=== PATIENT | male | born 1990 | race Caucasian/White ===

== ENCOUNTER 2017-06-02 10:35 | Inpatient (IN) | payer OTHER ==
[2017-06-02] MEDS ORDERED: LORazepam TAB(*) 1 MG PO ONE (10:56)
[2017-06-02 11:30] LABS: Hematocrit 43 % (42-52); Hemoglobin 15.1 g/dl (14.0-18.0); Mean Corpuscular HGB Conc 35 g/dl (31-36); Mean Corpuscular Hemoglobin 30 pg (27-31); Mean Corpuscular Volume 84 fL (80-94); Mean Platelet Volume 9 um3 (7.4-10.4); Red Blood Count 5.07 10^6/ul (4.0-5.4); Red Cell Distribution Width 13 % (10.5-15); White Blood Count 5.9 10^3/ul (3.5-10.8)
[2017-06-02] MEDS ORDERED: Ibuprofen TAB* 600 MG PO ONE (11:35)
[2017-06-02 11:52] LABS: ALT 30 U/L (7-52); AST 23 U/L (13-39); Albumin 4.7 g/dL (3.2-5.2); Alkaline Phosphatase 17 U/L (34-104); Anion Gap 6 mmol/L (2-11); Blood Urea Nitrogen 14 mg/dL (6-24); CO2 Carbon Dioxide 27 mmol/L (22-32); Calcium 9.7 mg/dL (8.6-10.3); Chloride 103 mmol/L (101-111); EGFR African American 172.7 (>60); EGFR Non-African American 134.3 (>60); Globulin 2.8 g/dL (2-4); Glucose 115 mg/dL (70-100); Potassium 3.8 mmol/L (3.5-5.0); Sodium 136 mmol/L (133-145); Total Protein 7.5 g/dL (6.4-8.9)
[2017-06-02 12:25] LABS: Acetaminophen < 15 mcg/mL; Alcohol < 10 mg/dL (<10); Salicylate < 2.50 mg/dL (<30)
[2017-06-02 12:45] LABS: TSH (Thyroid Stimulating Horm) 1.13 mcIU/mL (0.34-5.60)
[2017-06-02 13:03] LABS: Urine Bacteria 1+ (Absent); Urine Bilirubin Negative (Negative); Urine Glucose Negative (Negative); Urine Nitrite Negative (Negative)
[2017-06-02 13:36] LABS: Benzodiazepine Urine Screen None Detected (None Detect)
--- NOTE | 2017-06-02 14:19 | ED ---
Mele Cuenca Angela, scribed for Tucker Mcghee MD on 06/02/17 at 1049 . Psychiatric Complaint - HPI Summary HPI Summary: This pt is a 27 y/o male [facility] [place]/o anxiety and hallucinations. Pt has a PMHx of bipolar disorder. Pt states that he usually takes Depakote but has not taken it in a long time. He is requesting help and states he needs to calm down as he feels anxious now. Per triage note, pt has not slept in 3 days and pt's girlfriend called the pt's parents to notify them of pt. Pt additionally c/o left ear pain. Pt's psychiatrist is Dr. Mazin Bains in [place], [place]. Phone number: [phone] [address] Shaan Guevara in [place], [place]. Phone number: - History Of Current Complaint Chief Complaint: EDMentalHealth Time Seen by Provider: 06/02/17 10:45 Hx Obtained From: Patient Onset/Duration: Lasting Days Timing: Days Character: Anxious Aggravating Factor(s): Medication Non-compliance - Depakote, Other - no sleep for the past 3 days Associated Signs And Symptoms: Positive: Hallucinating - Allergies/Home Medications Allergies/Adverse Reactions: Allergies Allergy/AdvReac Type Severity Reaction Status Date / Time Ziprasidone [From Jatindon] Allergy Unknown Unknown Verified 02/07/15 01:39 Reaction Details Home Medications: Home Medications NK [No Home Medications Reported] 06/02/17 [History Confirmed 06/02/17] PMH/Surg Hx/FS Hx/Imm Hx Endocrine/Hematology History: Denies: Hx Diabetes Cardiovascular History: Denies: Hx Hypertension Psychiatric History: Reports: Hx Bipolar Disorder - Family History Known Family History: Positive: Hypertension - mother, Other - Father: Sarcoidosis. Paternal grandfather: HTN, CAD, CVA - Social History Alcohol Use: Weekly Alcohol Amount: 5/weekend Substance Use Type: Reports: None Smoking Status (MU): Never Smoked Tobacco Review of Systems Negative: Fever, Chills Eyes: Negative Positive: Ear Ache - left ear Cardiovascular: Negative Respiratory: Negative Genitourinary: Negative Neurological: Negative Positive: Anxious, Other - hallucinations All Other Systems Reviewed And Are Negative: Yes Physical Exam - Summary Physical Exam Summary: General: well-appearing, no pain distress Skin: warm, color reflects adequate perfusion, dry Head: normal Eyes: EOMI, LIZY ENT: Right TM is normal. Left ear drum has erythema in superior portion. There is clear fluid behind the left ear drum. Both ear canals are clear. Posterior pharynx is normal. Neck: supple, nontender Respiratory: CTA, breath sounds present Cardiovascular: RRR Abdomen: soft, nontender Bowel: present Musculoskeletal: normal, strength/ROM intact Neurological: normal, sensory/motor intact, A&O x3 Psychological: anxious Triage Information Reviewed: Yes Vital Signs On Initial Exam: Initial Vitals Resp 16 06/02/17 11:07 Vital Signs Reviewed: Yes Diagnostics - Vital Signs Vital Signs Temp Pulse Resp BP Pulse Ox 06/02/17 14:12 98.6 F 76 16 134/75 99 06/02/17 11:07 16 - Laboratory Lab Results: Lab Results 06/02/17 06/02/17 06/02/17 Range/Units 11:20 11:20 12:03 WBC 5.9 (3.5-10.8) 10^3/ul RBC 5.07 (4.0-5.4) 10^6/ul Hgb 15.1 (14.0-18.0) g/dl Hct 43 (42-52) % MCV 84 (80-94) fL MCH 30 (27-31) pg MCHC 35 (31-36) g/dl RDW 13 (10.5-15) % Plt Count 183 (150-450) 10^3/ul MPV 9 (7.4-10.4) um3 Neut % (Auto) 76.1 (38-83) % Lymph % (Auto) 12.3 L (25-47) % Carolina % (Auto) 10.5 H (1-9) % Eos % (Auto) 0.7 (0-6) % Baso % (Auto) 0.4 (0-2) % Absolute Neuts (auto) 4.5 (1.5-7.7) 10^3/ul Absolute Lymphs (auto) 0.7 L (1.0-4.8) 10^3/ul Absolute Monos (auto) 0.6 (0-0.8) 10^3/ul Absolute Eos (auto) 0 (0-0.6) 10^3/ul Absolute Basos (auto) 0 (0-0.2) 10^3/ul Absolute Nucleated RBC 0 10^3/ul Nucleated RBC % 0.1 Sodium 136 (133-145) mmol/L Potassium 3.8 (3.5-5.0) mmol/L Chloride 103 (101-111) mmol/L Carbon Dioxide 27 (22-32) mmol/L Anion Gap 6 (2-11) mmol/L BUN 14 (6-24) mg/dL Creatinine 0.70 (0.67-1.17) mg/dL Est GFR ( Amer) 172.7 (>60) Est GFR (Non-Af Amer) 134.3 (>60) BUN/Creatinine Ratio 20.0 (8-20) Glucose 115 H (70-100) mg/dL Calcium 9.7 (8.6-10.3) mg/dL Total Bilirubin 0.80 (0.2-1.0) mg/dL AST 23 (13-39) U/L ALT 30 (7-52) U/L Alkaline Phosphatase 17 L (34-104) U/L Total Protein 7.5 (6.4-8.9) g/dL Albumin 4.7 (3.2-5.2) g/dL Globulin 2.8 (2-4) g/dL Albumin/Globulin Ratio 1.7 (1-3) TSH 1.13 (0.34-5.60) mcIU/mL Urine Color Urine Appearance Urine pH (5-9) Ur Specific [place] (1.010-1.030) Urine Protein (Negative) Urine Ketones (Negative) Urine Blood (Negative) Urine Nitrate (Negative) Urine Bilirubin (Negative) Urine Urobilinogen (Negative) Ur Leukocyte Esterase (Negative) Urine WBC (Auto) (Absent) Urine RBC (Auto) (Absent) Ur Squamous Epith Cells (Absent) Urine Bacteria (Absent) Urine Glucose (Negative) Salicylates < 2.50 (<30) mg/dL Urine Opiates Screen None detected (None Detect) Acetaminophen < 15 mcg/mL Ur Barbiturates Screen None detected (None Detect) Valproic Acid 30.0 L (50-100) mcg/mL Ur Phencyclidine Scrn None detected (None Detect) Ur Amphetamines Screen None detected (None Detect) U Benzodiazepines Scrn None detected (None Detect) Urine Cocaine Screen None detected (None Detect) U Cannabinoids Screen None detected (None Detect) Serum Alcohol < 10 (<10) mg/dL 06/02/17 Range/Units 12:03 WBC (3.5-10.8) 10^3/ul RBC (4.0-5.4) 10^6/ul Hgb (14.0-18.0) g/dl Hct (42-52) % MCV (80-94) fL MCH (27-31) pg MCHC (31-36) g/dl RDW (10.5-15) % Plt Count (150-450) 10^3/ul MPV (7.4-10.4) um3 Neut % (Auto) (38-83) % Lymph % (Auto) (25-47) % Carolina % (Auto) (1-9) % Eos % (Auto) (0-6) % Baso % (Auto) (0-2) % Absolute Neuts (auto) (1.5-7.7) 10^3/ul Absolute Lymphs (auto) (1.0-4.8) 10^3/ul Absolute Monos (auto) (0-0.8) 10^3/ul Absolute Eos (auto) (0-0.6) 10^3/ul Absolute Basos (auto) (0-0.2) 10^3/ul Absolute Nucleated RBC 10^3/ul Nucleated RBC % Sodium (133-145) mmol/L Potassium (3.5-5.0) mmol/L Chloride (101-111) mmol/L Carbon Dioxide (22-32) mmol/L Anion Gap (2-11) mmol/L BUN (6-24) mg/dL Creatinine (0.67-1.17) mg/dL Est GFR ( Amer) (>60) Est GFR (Non-Af Amer) (>60) BUN/Creatinine Ratio (8-20) Glucose (70-100) mg/dL Calcium (8.6-10.3) mg/dL Total Bilirubin (0.2-1.0) mg/dL AST (13-39) U/L ALT (7-52) U/L Alkaline Phosphatase (34-104) U/L Total Protein (6.4-8.9) g/dL Albumin (3.2-5.2) g/dL Globulin (2-4) g/dL Albumin/Globulin Ratio (1-3) TSH (0.34-5.60) mcIU/mL Urine Color Yellow Urine Appearance Cloudy Urine pH 6.0 (5-9) Ur Specific [place] 1.016 (1.010-1.030) Urine Protein Negative (Negative) Urine Ketones Negative (Negative) Urine Blood Negative (Negative) Urine Nitrate Negative (Negative) Urine Bilirubin Negative (Negative) Urine Urobilinogen Negative (Negative) Ur Leukocyte Esterase 1+ H (Negative) Urine WBC (Auto) Trace(0-5/hpf) (Absent) Urine RBC (Auto) Trace(0-2/hpf) (Absent) Ur Squamous Epith Cells Present H (Absent) Urine Bacteria 1+ H (Absent) Urine Glucose Negative (Negative) Salicylates (<30) mg/dL Urine Opiates Screen (None Detect) Acetaminophen mcg/mL Ur Barbiturates Screen (None Detect) Valproic Acid (50-100) mcg/mL Ur Phencyclidine Scrn (None Detect) Ur Amphetamines Screen (None Detect) U Benzodiazepines Scrn (None Detect) Urine Cocaine Screen (None Detect) U Cannabinoids Screen (None Detect) Serum Alcohol (<10) mg/dL Result Diagrams: 06/02/17 11:20 06/02/17 11:20 Lab Statement: Any lab studies that have been ordered have been reviewed, and results considered in the medical decision making process. Course/Dx - Course Course Of Treatment: ADMIT TO MHU. NO CRITICAL CARE TIME. - Differential Dx/Clinical Impression Provider Diagnosis: Mental health problem Discharge - Discharge Plan Condition: Stable Disposition: PSYCHIATRIC FACILITY-[facility] Referrals: Riaz Mcnulty MD [Primary Care Provider] - The documentation as recorded by the Mele escobar Angela accurately reflects the service I personally performed and the decisions made by me, Tucker Mcghee MD.
[2017-06-02] MEDS ORDERED: Al Hydrox/Mg Hydrox/Simet LIQ* 30 ML UDC PO PRN (16:29)
[2017-06-02] MEDS ORDERED: QUEtiapine TAB* 100 MG PO SCH (21:00)
[2017-06-02] MEDS: Divalproex DR TAB(*) 500 MG PO SCH (21:02)
[2017-06-03] MEDS: LORazepam TAB(*) 1 MG PO PRN ×3 (01:52→21:51)
[2017-06-03] MEDS: Acetaminophen TAB* 325 MG PO PRN (01:53)
[2017-06-03] MEDS: Divalproex DR TAB(*) 500 MG PO SCH ×2 (09:19→20:41)
--- NOTE | 2017-06-03 13:24 | RAD ---
Indication: Headaches, hypertension. CT of the brain was performed without IV contrast. Ventricular structures are midline. No midline shift is noted. The extra-axial spaces are unremarkable. There is no evidence of intracranial mass or hemorrhage. No other high or low density lesions are identified. Mastoid air cells and paranasal sinuses are unremarkable. The orbits are unremarkable. When compared to previous exam of April 16, 2009 no significant change is noted. IMPRESSION: No intracranial mass or hemorrhage is noted.
[2017-06-03] MEDS ORDERED: cloNIDine TAB* 0.1 MG PO ONE (14:54)
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
[2017-06-03] MEDS: QUEtiapine TAB* 100 MG PO SCH (20:40)
[2017-06-03] MEDS: ARIPiprazole TAB* 5 MG PO SCH (20:40)
[2017-06-03] MEDS ORDERED: QUEtiapine XR TAB* 300 MG PO SCH (21:00)
[2017-06-04] MEDS: Acetaminophen TAB* 325 MG PO PRN (11:11)
[2017-06-04] MEDS: QUEtiapine TAB* 100 MG PO SCH (20:46)
[2017-06-04] MEDS: Divalproex DR TAB(*) 500 MG PO SCH (20:46)
[2017-06-04] MEDS: ARIPiprazole TAB* 5 MG PO SCH (20:46)
[2017-06-05 02:42] LABS: HDL Cholesterol 42.9 mg/dL
[2017-06-05] MEDS: LORazepam TAB(*) 1 MG PO PRN (09:01)
--- NOTE | 2017-06-05 16:38 | PN ---
Subjective - Subjective Service Type: 69764 Hosp care 15 min low complexity Subjective: Angel Luis reports of a decrease in his paranoia and now he understand why his psychotic symptoms returned resulting in this hospitalization. Complaining of mild stiffness of muscles but denies other side effects from his meds. Will wait to see few more days on current dose of Abilify to avoid severe side effects as he appears to be sensitive to side effects and may not continue. Objective - Appearance Appearance: Well Developed/Nourished Dysmorphic Features: No Hygiene: Normal Grooming: Well Kept - Behavior Psychomotor Activities: Normal Exhibits Abnormal Movement: No - Attitude and Relatedness Attitude and Relatedness: Appropriate Eye Contact: Poor - Speech Quality: Unpressured Latencies: Normal Quantity: Appropriate - Mood Patient's Decription of Mood: "Fine" - Affect Observed Affect: Constricted Affect Consistent with: Dysphoria - Thought Process Patient's Thought Process: Coherent, Goal Directed Thought Content: Yes Paranoid Ideation, No Passive Wish, No Suicidal Planning, No Homicidal Ideation - Sensorium Experiencing Hallucinations: No, Sensorium is Clear Type of Hallucinations: Visual: No, Auditory: No, Command: No - Level of Consciousness Level of Consciousness: Alert Orientation: Yes Intact, Yes Orientated to Time, Yes Orientated to Place, Yes Orientated to Person - Impulse Control Impulse Control: Intact - Insight and Judgement Insight and Judgement: Fair - Group Participation Particating in Group Activities: No - Medication Management Medication Management Adherence: Yes Assessment - Assessment Merits Inpatient Hospitalization: For Stabilization, Consolidate Improvements, For Discharge Planning Clinical Impression: Still psychotic and will need further dose adjustment as he tolerates. Plan - Plan Treatment Plan: Name: ANGEL LUIS BARAKAT Birthdate: 1990 [id number] Continued Medication Management: Continue Outpt Medication Medications: Current Medications Acetaminophen (Tylenol Tab*) 650 mg PO Q4H PRN PRN Reason: for pain; or Temp >101 F Last Admin: 06/04/17 11:11 Dose: 650 mg Al Hydrox/Mg Hydrox/Simethicone (Maalox Plus*) 30 ml PO Q4H PRN PRN Reason: INDIGESTION Aripiprazole (Abilify Tab*) 10 mg PO BEDTIME MARIANNE Last Admin: 06/04/17 20:46 Dose: 10 mg Divalproex Sodium (Depakote Dr Tab(*)) 500 mg PO BEDTIME MARIANNE Last Admin: 06/04/17 20:46 Dose: 500 mg Lorazepam (Ativan Tab(*)) 1 mg PO Q6H PRN PRN Reason: ANXIETY Last Admin: 06/05/17 09:01 Dose: 1 mg Quetiapine Fumarate (Seroquel Tab*) 100 mg PO BEDTIME MARIANNE Last Admin: 06/04/17 20:46 Dose: 100 mg - Discharge Plan Discharge Plan: Outpatient Follow Up Outpatient Program: [facility].
[2017-06-05] MEDS: QUEtiapine TAB* 100 MG PO SCH (20:17)
[2017-06-05] MEDS: Divalproex DR TAB(*) 500 MG PO SCH (20:17)
[2017-06-05] MEDS: ARIPiprazole TAB* 5 MG PO SCH (20:17)
[2017-06-06] MEDS ORDERED: cloNIDine TAB* 0.1 MG PO SCH (09:00)
--- NOTE | 2017-06-06 14:08 | PN ---
Subjective - Subjective Service Type: 63178 Hosp care 25 min moderate complexity Subjective: Patient is transferred to my care and seen for the first time by this clinician. He is calm, polite and cooperative; able to answer questions with reasonable responses. Patient feels paranoia is improving with marked reduction in ideas of reference and persecution. He remains somatic regarding left facial and neck pains. 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 Patient's headaches likely attributable to increased BPs and have improved since initiation of clonidine, which he is tolerating well. He denies SI or HI. Taking meds as directed. I spoke with the patient's mother, Meliza Pineda ([phone]) who is agreeable with the current treatment plan. Objective - Appearance Appearance: Well Developed/Nourished Dysmorphic Features: No Hygiene: Normal Grooming: Well Kept - Behavior Psychomotor Activities: Normal Exhibits Abnormal Movement: No - Attitude and Relatedness Attitude and Relatedness: Cooperative Eye Contact: Fair - Speech Quality: Unpressured Latencies: Normal Quantity: Appropriate - Mood Patient's Decription of Mood: "Okay" - Affect Observed Affect: Good Affect Consistent with: Euthymia - Thought Process Patient's Thought Process: Coherent Thought Content: No Passive Wish, No Suicidal Planning, No Homicidal Ideation, No Paranoid Ideation - Sensorium Experiencing Hallucinations: No, Sensorium is Clear Type of Hallucinations: Visual: No, Auditory: No, Command: No - Level of Consciousness Level of Consciousness: Alert Orientation: Yes Intact, Yes Orientated to Time, Yes Orientated to Place, Yes Orientated to Person - Impulse Control Impulse Control: Tenuous - Insight and Judgement Insight and Judgement: Fair - Group Participation Particating in Group Activities: Yes - Medication Management Medication Management Adherence: Yes Assessment - Assessment Merits Inpatient Hospitalization: For Immediate Safety, For Stabilization Inpatient DSM-IV Dx: Schizoaffective DO, Bipolar Type Clinical Impression: 27 y.o. single, white male with a history of schizoaffective DO, bipolar type who is admitted on a voluntary status, having been brought in by his parents out of concern for several weeks of increasingly bizarre, paranoid behavior in the setting of non-adherence with antipsychotic medications. Plan - Plan Treatment Plan: Name: MICHELLE PINEDA Birthdate: 1990 [id number] The patient is improving on a trial of oral aripiprazole 10mg PO qday. The plan , which was made in collaboration with his outpatient psychiatrist, Dr. Bains , is to start him on injectable aripiprazole Maintaina, with likely first dose on Tuesday, June 08. Thereafter we may be able to discharge him to home later this week. He is also on Depakote 500mg PO qhs for mood stabilization, quetiapine 100mg PO qhs as a soporific, and clonidine 0.1mg PO BID for both BP and anxiety. Continued Medication Management: Different Medication Medications: Current Medications Acetaminophen (Tylenol Tab*) 650 mg PO Q4H PRN PRN Reason: for pain; or Temp >101 F Last Admin: 06/04/17 11:11 Dose: 650 mg Al Hydrox/Mg Hydrox/Simethicone (Maalox Plus*) 30 ml PO Q4H PRN PRN Reason: INDIGESTION Aripiprazole (Abilify Tab*) 10 mg PO BEDTIME COUNT INCLUDES THE [facility] Last Admin: 06/05/17 20:17 Dose: 10 mg Clonidine HCl (Catapres Tab*) 0.1 mg PO BID MARIANNE Divalproex Sodium (Depakote Dr Tab(*)) 500 mg PO BEDTIME COUNT INCLUDES THE [facility] Last Admin: 06/05/17 20:17 Dose: 500 mg Lorazepam (Ativan Tab(*)) 1 mg PO Q6H PRN PRN Reason: ANXIETY Last Admin: 06/05/17 09:01 Dose: 1 mg Quetiapine Fumarate (Seroquel Tab*) 100 mg PO BEDTIME COUNT INCLUDES THE [facility] Last Admin: 06/05/17 20:17 Dose: 100 mg - Discharge Plan Discharge Plan: Inpatient Hospitalization
[2017-06-06] MEDS: Acetaminophen TAB* 325 MG PO PRN (14:18)
[2017-06-06] MEDS: Divalproex DR TAB(*) 500 MG PO SCH (20:19)
[2017-06-06] MEDS: ARIPiprazole TAB* 5 MG PO SCH (20:19)
[2017-06-06] MEDS: QUEtiapine TAB* 100 MG PO SCH (20:19)
[2017-06-06] MEDS: cloNIDine TAB* 0.1 MG PO SCH (20:20)
[2017-06-07] MEDS: cloNIDine TAB* 0.1 MG PO SCH ×2 (08:24→20:00)
--- NOTE | 2017-06-07 11:37 | PN ---
Subjective - Subjective Service Type: 95842 Hosp care 15 min low complexity Subjective: Patient states that he had a couple brief experiences of paranoid thinking yesterday but slept well throughout the night and has been symptom free thus far today. I received an email from Angel Luis's father, Otto Pineda, who indicated that Angel Luis had been briefly treated with aripiprazole during an acute psychiatric hospitalization in [place] several years ago, and the medication was discontinued for reasons that are not remembered. He expressed some concern about the aripiprazole long-acting injectable being started without further evidence of tolerance of the oral formulation. Angel Luis shares this concern and does not himself remember why aripiprazole was discontinued, as this was several years ago. So far he denies side effects but continues to have some stiffness in his neck that was present before the medication was started. He denies SI or HI. Objective - Appearance Appearance: Well Developed/Nourished Dysmorphic Features: No Hygiene: Normal Grooming: Well Kept - Behavior Psychomotor Activities: Normal Exhibits Abnormal Movement: No - Attitude and Relatedness Attitude and Relatedness: Cooperative Eye Contact: Fair - Speech Quality: Unpressured Latencies: Normal Quantity: Appropriate - Mood Patient's Decription of Mood: "Good" - Affect Observed Affect: Good Affect Consistent with: Euthymia - Thought Process Patient's Thought Process: Coherent Thought Content: Yes Paranoid Ideation, No Passive Wish, No Suicidal Planning, No Homicidal Ideation - Sensorium Experiencing Hallucinations: No, Sensorium is Clear Type of Hallucinations: Visual: No, Auditory: No, Command: No - Level of Consciousness Level of Consciousness: Alert Orientation: Yes Intact, Yes Orientated to Time, Yes Orientated to Place, Yes Orientated to Person - Impulse Control Impulse Control: Intact - Insight and Judgement Insight and Judgement: Good - Group Participation Particating in Group Activities: Yes - Medication Management Medication Management Adherence: Yes Assessment - Assessment Merits Inpatient Hospitalization: Consolidate Improvements, Pending Safe DC Plan Inpatient DSM-IV Dx: Schizoaffective DO, Bipolar Type Clinical Impression: 27 y.o. single, white male with a history of schizoaffective DO, bipolar type who is admitted on a voluntary status, having been brought in by his parents out of concern for several weeks of increasingly bizarre, paranoid behavior in the setting of non-adherence with antipsychotic medications. Plan - Plan Treatment Plan: Name: ANGEL LUIS PINEDA Birthdate: 1990 [id number] The patient is improving on a trial of oral aripiprazole 10mg PO qday, however, he is still having some residual paranoia. Given his and his family's concerns regarding tolerance, we will postpone the initiation of aripiprazole Maintaina and increase oral aripiprazole to 15mg nightly. We'll schedule a family meeting tomorrow, June 08, and likely discharge him to home the day after ( 06/09). His Depakote is most likely subtherapeutic at 500mg PO qhs and so we'll increase this to 500mg PO BID for mood stabilization. He is also taking quetiapine 100mg PO qhs as a soporific, and clonidine 0.1mg PO BID for both BP and anxiety. I'm pleased with his progress. Continued Medication Management: Different Medication Medications: Current Medications Acetaminophen (Tylenol Tab*) 650 mg PO Q4H PRN PRN Reason: for pain; or Temp >101 F Last Admin: 06/06/17 14:18 Dose: 650 mg Al Hydrox/Mg Hydrox/Simethicone (Maalox Plus*) 30 ml PO Q4H PRN PRN Reason: INDIGESTION Aripiprazole (Abilify Tab*) 15 mg PO BEDTIME MARIANNE Clonidine HCl (Catapres Tab*) 0.1 mg PO BID MARIANNE Last Admin: 06/07/17 08:24 Dose: 0.1 mg Divalproex Sodium (Depakote Dr Tab(*)) 500 mg PO BID MARIANNE Lorazepam (Ativan Tab(*)) 1 mg PO Q6H PRN PRN Reason: ANXIETY Last Admin: 06/05/17 09:01 Dose: 1 mg Quetiapine Fumarate (Seroquel Tab*) 100 mg PO BEDTIME MARIANNE Last Admin: 06/06/17 20:19 Dose: 100 mg - Discharge Plan Discharge Plan: Inpatient Hospitalization Lab Results - Lab Results Lab Results: 06/04/17 06/04/17 08:51 08:51 Hemoglobin A1c 5.1 Triglycerides 99 Cholesterol 171 LDL Cholesterol 108 HDL Cholesterol 42.9
[2017-06-07] MEDS: QUEtiapine TAB* 100 MG PO SCH (20:00)
[2017-06-07] MEDS: ARIPiprazole TAB* 5 MG PO SCH (20:01)
[2017-06-07] MEDS: Divalproex DR TAB(*) 500 MG PO SCH (20:02)
[2017-06-08] MEDS: Divalproex DR TAB(*) 500 MG PO SCH ×2 (08:32→20:30)
[2017-06-08] MEDS: cloNIDine TAB* 0.1 MG PO SCH ×2 (08:32→20:30)
--- NOTE | 2017-06-08 13:23 | PN ---
Subjective - Subjective Service Type: 70519 Family Medical Psyc Subjective: Family with meeting attended by the patient, his girlfriend, Skye, sister Avani, Mother Meliza, Father Otto, with sister Letty participating via speakerphone from [place], [place]. The family expresses their relief to see him functioning back to his baseline and doing better. They have some appropriate questions related to medications and outpatient follow up recommendations. Michelle is feeling better and denies paranoid thinking today. He has mild sedation , perhaps from the new medication regimen, but admits that this might be related to his lack of sleep in the week leading up to admission. He continues to deny SI or HI and both he and his family are comfortable with targeting tomorrow for discharge to home. Objective - Appearance Appearance: Well Developed/Nourished Dysmorphic Features: No Hygiene: Normal Grooming: Well Kept - Behavior Psychomotor Activities: Normal Exhibits Abnormal Movement: No - Attitude and Relatedness Attitude and Relatedness: Cooperative Eye Contact: Good - Speech Quality: Unpressured Latencies: Normal Quantity: Appropriate - Mood Patient's Decription of Mood: "Good" - Affect Observed Affect: Fair Affect Consistent with: Euthymia - Thought Process Patient's Thought Process: Coherent Thought Content: No Passive Wish, No Suicidal Planning, No Homicidal Ideation, No Paranoid Ideation - Sensorium Experiencing Hallucinations: No, Sensorium is Clear Type of Hallucinations: Visual: No, Auditory: No, Command: No - Level of Consciousness Level of Consciousness: Alert Orientation: Yes Intact, Yes Orientated to Time, Yes Orientated to Place, Yes Orientated to Person - Impulse Control Impulse Control: Intact - Insight and Judgement Insight and Judgement: Good - Group Participation Particating in Group Activities: Yes - Medication Management Medication Management Adherence: Yes Assessment - Assessment Merits Inpatient Hospitalization: Consolidate Improvements, Pending Safe DC Plan Inpatient DSM-IV Dx: Schizoaffective DO, Bipolar Type Clinical Impression: 27 y.o. single, white male with a history of schizoaffective DO, bipolar type who is admitted on a voluntary status, having been brought in by his parents out of concern for several weeks of increasingly bizarre, paranoid behavior in the setting of non-adherence with antipsychotic medications. Plan - Plan Treatment Plan: Name: MICHELLE BARAKAT Birthdate: 1990 [id number] The patient is improving on a trial of oral aripiprazole 15mg PO qhs. Given his and his family's concerns regarding tolerance, we will postpone the initiation of aripiprazole Maintaina until after discharge, so that he can be sure that he tolerates this well. Family meeting was successful and we will likely discharge him to home tomorrow (06/09). His Depakote is now at 500mg PO BID for mood stabilization but he would prefer this be changed to 1000mg PO qhs. He is also taking quetiapine 100mg PO qhs as a soporific, and clonidine 0.1mg PO BID for both BP and anxiety. I'm pleased with his progress. Continued Medication Management: Different Medication Medications: Current Medications Acetaminophen (Tylenol Tab*) 650 mg PO Q4H PRN PRN Reason: for pain; or Temp >101 F Last Admin: 06/06/17 14:18 Dose: 650 mg Al Hydrox/Mg Hydrox/Simethicone (Maalox Plus*) 30 ml PO Q4H PRN PRN Reason: INDIGESTION Aripiprazole (Abilify Tab*) 15 mg PO BEDTIME MARIANNE Last Admin: 06/07/17 20:01 Dose: 15 mg Clonidine HCl (Catapres Tab*) 0.1 mg PO BID MARIANNE Last Admin: 06/08/17 08:32 Dose: 0.1 mg Divalproex Sodium (Depakote Dr Tab(*)) 500 mg PO BID MARIANNE Stop: 06/09/17 07:00 Last Admin: 06/08/17 08:32 Dose: 500 mg Divalproex Sodium (Depakote Dr Tab(*)) 1,000 mg PO BEDTIME MARIANNE Lorazepam (Ativan Tab(*)) 1 mg PO Q6H PRN PRN Reason: ANXIETY Last Admin: 06/05/17 09:01 Dose: 1 mg Quetiapine Fumarate (Seroquel Tab*) 100 mg PO BEDTIME MARIANNE Last Admin: 06/07/17 20:00 Dose: 100 mg - Discharge Plan Discharge Plan: Outpatient Follow Up Outpatient Program: Private Clinician(s)
[2017-06-08] MEDS: QUEtiapine TAB* 100 MG PO SCH (20:30)
[2017-06-08] MEDS: ARIPiprazole TAB* 5 MG PO SCH (20:30)
[2017-06-09 07:37] VITALS: BP 123/69
[2017-06-09] MEDS: cloNIDine TAB* 0.1 MG PO SCH (08:47)
--- NOTE | 2017-06-09 16:25 | DS ---
CC: Dr. Riaz Mcnulty; Dr. Mazin Baisn, Psychiatrist, [place], [place] * DATE OF ADMISSION: 06/02/2017. DATE OF DISCHARGE: 06/09/2017. DISCHARGE DIAGNOSES: AXIS I: Schizoaffective disorder, bipolar type; generalized anxiety disorder. AXIS II: Deferred. AXIS III: Headache, acute hypertension. AXIS IV: Moderate, primary support, financial and occupational stressors. AXIS V: At the time of admission was 30 and at the time of discharge is 60. CONDITION AT THE TIME OF DISCHARGE: Stable. The patient is denying suicidal or homicidal ideations. He is clear headed, reality focused, able to answer questions and to plan for the future. His thinking is logical and sequential and he is very much future oriented, talking about returning to work on the campus of [employer] after two weeks and then perhaps saving some money so that he can move with his girlfriend to a larger city. The patient is tolerating his medications quite well and he is agreeable with following up in the community with both his psychologist as well as his prescribing psychiatrist. He is very much supported by his family who are in agreement with the discharge plan. In fact, his father is coming this afternoon to pick him up and provide transportation home. Follow-up appointments have also been made with his family practice doctor, Dr. Riaz Mcnulty. He has been safe on all checks and we feel that it is appropriate for him to receive care in a less restrictive setting at this time. MENTAL STATUS EXAM: The patient is a young, attractive, white male, somewhat tall, well-groomed, clean, cooperative. He is easy to establish a rapport with. I note that his speech is somewhat slowed and measured, but otherwise fluent. Mood is euthymic with a mildly blunted affect. Thought process is linear and goal- directed. Thought content is significant for his desire to leave the hospital. He denies suicidal or homicidal ideations. He denies auditory or visual hallucinations. He denies any paranoia at this time or thoughts of others harming him. He denies ideas of reference. Insight and judgment appear to be fair given his willingness to follow-up with treatment on an outpatient basis. Cognitively, he is awake and alert with what would appear to be a high average intellect by virtue of his academic attainment. DISCHARGE INSTRUCTIONS TO THE PATIENT: A. Medications: He takes Aripiprazole 15 mg p.o. at bedtime, Depakote 1000 mg p.o. at bedtime, Quetiapine 100 mg p.o. at bedtime, Clonidine 0.1 mg p.o. b.i.d. B. Diet: Regular. C. Activities: As tolerated. The patient is a nonsmoker. There are no laboratory or diagnostic studies pending at the time of discharge. D. Follow-up care: The patient will be following up with his outpatient psychiatrist, Dr. Mazin Bains, in [place], [place]. In addition, he has a psychologist, Dr. Shaan Guevara, also in [place] for whom he will be having weekly therapy. In addition, a follow-up family care appointment with Dr. Riaz Mcnulty has also been established. HOSPITAL COURSE - PART A: Reason for admission: The patient is a 27-year-old, single, white male with a history of schizoaffective disorder, bipolar type, who has numerous past psychiatric inpatient hospitalizations, who now returns, brought in by his family due to impulsive, bizarre and manic behaviors. 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 He is showing poor insight and judgment, stating that he had not slept for days leading up to the admission. He stated that he had recent weight loss , described tension headaches, as well as pain in his left neck and left ear. The patient indicated that he was trying to work on a story that was "too complex for me." During his intake interview, he has profound speech latency, was easily distracted, appeared to be attending to unseen stimuli and presented with loose associates, distractibility. He reported that he was feeling emotional, endorsing anxiety and agoraphobia, as well as paranoid delusions to the effect that other people were watching him or talking about him. He states that he had not been taking his medications, including Depakote or Quetiapine for at least a week and prior to this he had been slowly decreasing Depakote on his own without the oversight of his outpatient psychiatrist. He complained that his medications were making him feel "heavy." He did describe somnolence and weight gain with the medications. He also stated that he had stopped taking them because "I was going so fast that they weren't working anymore." At some points of the interview, his thought process became tangential. Upon admission, his parents and his girlfriend met with him during visiting hours. They were very much supportive and concerned over this well being. They reported that he has been increasingly impulsive and bizarre. They noted, for example, that he was anxious, appearing depressed at times compared to his baseline. They were very much in support of hospitalization on our unit. HOSPITAL COURSE - PART B: Psychiatric treatment rendered: The patient was admitted to the Adult Behavioral Health Unit and placed on q.15 minute checks for his own safety. We immediately resumed therapy with Depakote as well as Quetiapine. After a discussion with his outpatient psychiatrist, Dr. Mazin Bains, it was determined that perhaps the patient would do better on an antipsychotic therapy that could be injectable on a long-term basis. Because Seroquel does not come in this type of formulation, the patient and his treatment staff agreed to a trial of Aripiprazole initially with the initially with the intent of putting him on Abilify Maintena. The patient was started initially on 5 mg of Aripiprazole and this was gradually titrated to 10 and then finally 15 mg daily. He did seem to have some sedation from this and the family was concerned that at one point during a prior hospitalization he had been taken off Aripiprazole; however, they could not remember the justification for doing so. They were not comfortable with the idea of placing him on a long-term injectable until he had been on the oral variant for long enough to determine whether this was a safe medication. The treatment team was in agreement with this and he is still only taking the oral version of Abilify. In addition, his Depakote was resumed, initially at 500 mg daily, but then titrated up to 1000 mg daily. He is instructed to work with his outpatient provider in terms of gathering valproic acid level and seeing where the dosing needs to go with this particular medication. Although we typically do not place patients on more than one antipsychotic, it was felt that we should leave him on at least a low dose of Seroquel so that it would help him sleep, and as he is discharge he is still taking 100 mg at night. The patient is in the middle of a cross titration in which eventually he will likely only be on Aripiprazole and no longer Quetiapine , but we felt that antipsychotic polypharmacy was justified given the necessity of him getting decent sleep while in the hospital. An additional medication that was employed was Clonidine. This was for two reasons, one his blood pressures were consistently elevated towards the beginning portion of his hospital with systolic measurements in the 170s. After Clonidine 0.1 mg p.o. b.i.d. was initiated, his systolic blood pressures trended down into the normal range with values in the 120s. He tolerated all of these medications quite well. Progressively, he became more social. His thought process freed up and he no longer displayed thought blocking or speech latency. His paranoia resolved. He had no suicidal or homicidal thinking that was noted. His family and girlfriend had several visits which were constructive and supportive. Ultimately, we did have a family meeting attended not only by his parents and girlfriend, but also by his sister in person and his older sister via a speakerphone from [facility]. At that time, we provided the family with further psychoeducation as well as the rationale for moving forward with his treatment plan. They are in agreement that the patient is safe for discharge and largely back to his baseline and able to follow-up with his psychiatrist, psychologist, and family practice doctors in the outpatient setting. I am quite pleased with how Angel Luis did during this hospitalization in terms of experiencing a fairly rapid recovery and return to his baseline. I do not think that he will be ready to work within the next two weeks and so I have provided him with documentation to provide his employers to the effect that he needs the next two weeks off from work, for which the family is grateful. He is set to follow-up with his outpatient providers and we certainly wish him the best for a healthy and safe future. I will add that we did get a head CT based on his complaints of left ear pain which was within the normal limits. [id number]/[facility] #: [id number] LIONEL
[2017-06-09] MEDS ORDERED: Divalproex DR TAB(*) 500 MG PO SCH (21:00)
== END 2017-06-09 13:30 | disposition home or self-care (01) | DRG 885 ==
LOC: ED 10:35 → BSU 16:29
PROVIDERS: ADMIT Psychiatry & Neurology Psychiatry; ATTEND Psychiatry & Neurology Psychiatry
DX: F25.0 Schizoaffective disorder, bipolar type (principal); F22 Delusional disorders; I10 Essential (primary) hypertension; F31.9 Bipolar disorder, unspecified; R51 Headache; F41.1 Generalized anxiety disorder; Z81.8 Family history of other mental and behavioral disorders; Z81.1 Family history of alcohol abuse and dependence; Z88.8 Allergy status to other drugs, medicaments and biological substances; Z82.3 Family history of stroke; Z82.49 Family history of ischemic heart disease and other diseases of the circulatory system; Z72.89 Other problems related to lifestyle; Z91.14 Patient's other noncompliance with medication regimen
CPT/HCPCS: 36415; 70450; 80053; 80061; 80164; 80307; 80320; 80329; 81003; 81015; 83036; 84443; 85025; 87086; 90847; 99222; 99231; 99232; 99238; A9270-GY; G0480